=== PATIENT | female | born 1950 | race Two or more races ===

== ENCOUNTER 2021-04-16 12:22 | Outpatient (CLI) | payer OTHER | END 2021-04-16 12:23 | disposition home or self-care (01) | LOC: NUCLEAR 12:22 | PROVIDERS: ATTEND Neurological Surgery | DX: M48.062 Spinal stenosis, lumbar region with neurogenic claudication (principal); M43.16 Spondylolisthesis, lumbar region; M81.0 Age-related osteoporosis without current pathological fracture ==